=== PATIENT | male | born 1985 | race Caucasian/White ===

== ENCOUNTER 2016-06-14 08:44 | Emergency (ER) | payer OTHER ==
[~2016-06-14] VITALS: Ht 182.9 cm; Wt 84.1 kg
[2016-06-14 08:47] VITALS: BP 125/69; PULSE 72; RESP 16; O2SAT 98
--- NOTE | 2016-06-14 09:10 | ED.REPORT ---
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 The pain radiates to his left hip only. He denies any fever, incontinence, or loss of motor or sensory function in legs. He does not use IV drugs and has not had any recent injuries. He denies any pertinent medical history, any allergies and does not take any medications. He is currently on disability benefits for his right leg. Nursing Notes Stated Complaint: BACK PAIN Chief Complaint: Back Pain or Injury Nursing Notes Reviewed: Yes Allergies: Coded Allergies: No Known Allergies (Unverified , 06/14/16) Scheduled PRN Ibuprofen (Ibuprofen) 800 Mg Tablet 800 MG PO TID PRN PRN For Pain General Time Seen by MD: 09:06 Chief Complaint Back pain Hx Obtained From: Patient Arrived By: Walk-in Sudden in Onset?: No Onset Occurred: 4 days ago Symptom Duration: Intermittent Severity: Current: Mild Severity: Maximum: Mild Recent Healthcare: No recent doctor visit Similar Sx Previous: No Past Medical History Past Medical History Patient was born with left leg being larger than right leg both in length and girth. Past Surgical History none reported. Social History Drug Use: Denies drug use Ambulatory Status Independent Review of Systems Review of Systems Note: Pain in left hip and both legs. Denies any loss of function in legs. Constitutional: Denies: Fever Male: Denies Incontinence Musculoskeletal: Reports: Back pain Complete sys rev & neg: except as marked. Physical Exam Initial Vital Signs Vital Signs (First) Date Time Temp Pulse Resp B/P Pulse Ox O2 Delivery O2 Flow Rate FiO2 06/14/16 08:47 36.4 72 16 125/69 98 Room Air Initial VS: Reviewed General/Constitutional: Awake, Alert Appears uncomftorable. Back: Full range of motion lumbar paraspinal tenderness, intact motor and sensory function from L1 to S1, no bony midline tenderness. antalgic gait. Neurologic: Oriented X3, Speech NL Neck: Atraumatic, Full range of motion Respiratory / Chest: Atraumatic, Breath sounds NL, Breath sounds = bilat, No respiratory distress, No rales, No rhonchi Cardiovascular: Heart rate NL, Regular rhythm, Heart sounds NL Abdomen: Atraumatic, No guarding, No rebound Lower Extremity / Pelvis / MS: Atraumatic, Full range of motion Head / Eyes: Atraumatic, Normocephalic, PERRL, EOMI ENT: Atraumatic, Mucous membranes moist Upper Extremity / MS: Atraumatic, Full range of motion Wrist / Hand: Atraumatic, Full range of motion Skin: Atraumatic, Color NL, No rash, Warm, Dry Re-Eval/Medical Decision Med Decision/Clinical Course Focal lumbar pain without significant high risk features, will treat conservatively with ibuprofen and recommend outpatient physical therapy evaluation. Return and follow-up precautions given. Discharge & Departure Impression: Primary Impression: Lumbar strain Disposition: Home All VS Reviewed: Yes Condition: Improved Patient Instructions: Acute Low Back Pain (ED) Additional Instructions: Use ibuprofen for pain. Follow-up with a primary care doctor who can help facilitate physical therapy. Return to ER if you develop loss of bowel or bladder function, numbness or weakness going down your extremities, high fever associated with back pain, or other concerns. Referrals: Aki Perez MD (PCP) Scribe Attestation Portions of this note were transcribed by Umberto Daniels. I, Dr. iDxon, personally performed the history, physical exam, and medical decision-making; I reviewed and confirmed the accuracy of the information in the transcribed note. Signed by: Nancy Choudhary, 06/14/2016, 1001. copies to: Aki Perez MD; [facility]; [facility] Jai Dixon DO Jun 14, 2016 09:10 Umberto Daniels Jun 14, 2016 09:19
[2016-06-14] MEDS ORDERED: IBUP800T28 PO (09:23)
== END 2016-06-14 09:43 | disposition home or self-care (01) ==
LOC: SED 08:44
DX: S39.012A Strain of muscle, fascia and tendon of lower back, initial encounter (principal); X58.XXXA Exposure to other specified factors, initial encounter; Y93.89 Activity, other specified; Y92.89 Other specified places as the place of occurrence of the external cause; Y99.8 Other external cause status